=== PATIENT | female | born 1970 ===

== ENCOUNTER → 2021-02-13 18:13 | Outpatient (ROUT) | payer BC, SELFPAY ==
[2021-02-13 18:21] LABS: Add Manual Diff / Slide Review NO; Basophils Absolute Auto 0 /uL (0-100); Basophils Percent Auto 0.3 % (0-2); Eosinophils Absolute Auto 100 /uL (0-450); Eosinophils Percent Auto 1.1 % (2-4); Hematocrit 37.5 % (36-46); Lymphocytes Absolute Auto 2300 /uL (1100-4500); Mean Corpuscular HGB Conc 34.6 % (30-36); Mean Corpuscular Hemoglobin 30.7 PG (26-34); Mean Corpuscular Volume 88.7 fL (80-100); Monocytes Absolute Auto 300 /uL (0-900); Monocytes Percent Auto 6.6 % (3-14); Neutrophils Absolute Auto 2200 /uL (1500-7000); Platelet Count 180 X10^3/uL (150-400); Red Blood Cell Count 4.23 X10^6/uL (4.0-5.2); Red Cell Distribution Width 12.5 % (11.6-14.8); White Blood Cell Count 4.8 X10^3/uL (4.5-11.0)
[2021-02-13 18:29] LABS: Alanine Aminotransferase 25 IU/L (<35); Alkaline Phosphatase 106 U/L (38-126); Aspartate Aminotransferase 34 IU/L (14-36); BUN Creatinine Ratio 25.5 (6-22); Bilirubin Total 0.5 mg/dL (0.2-1.3); Blood Urea Nitrogen 13 mg/dL (7-17); C-Reactive Protein Quant < 0.5 mg/dL (<1.0); Calcium 9.2 mg/dL (8.4-10.2); Carbon Dioxide 24 mmol/L (22-32); Chloride 105 mmol/L (98-107); Estimated Glomerular Filt Rate > 60.0 mL/min (>60); Glucose 72 mg/dL (70-100); Sodium 136 mmol/L (137-145); Total Protein 7.2 g/dL (6.3-8.2)
[2021-02-13 18:30] LABS: Albumin Globulin Ratio 1.3 (1.0-2.8); Globulin 3.2 g/dL (1.7-4.1); HEMOLYSIS 57 (0-50)
[2021-02-13 18:38] LABS: Erythrocyte Sedimentation Rate 9 MM/HR (0-20)
== END ==
PROVIDERS: Visit Provider Internal Medicine Gastroenterology
DX: K50.90 Crohn's disease, unspecified, without complications (principal)
CPT/HCPCS: 80053; 85025; 85651; 86140